=== PATIENT | female | born 1970 | race Caucasian/White ===

== ENCOUNTER → 2016-08-26 | Outpatient (CLI) | payer OTHER ==
[~2016-08-26] MED LIST: CELEXA20 MG PO; CLARITIN10 M3 PO; HYDROXYZINE PAM25 MG PO; IBUPROFEN800 MG PO; METFORMIN PO; ONDANSETRON HCL4 M1 PO; TRIAMTERENE-HC1 EAC1 PO; VOLTAREN75 MG PO
--- NOTE | ~2016-08-26 | EKG ---
PATIENT: LUDWIN BAÑUELOS UNIT #: [id number] Ventricular Rate: 82 BPM Atrial Rate: 82 BPM P-R Interval: 118 ms QRS Duration: 86 ms Q-T Interval: 382 ms QTC Calculation(Bezet): 446 ms P [place]: 43 degrees Calculated T [place]: 1 degrees Diagnosis Line: Normal sinus rhythm Diagnosis Line: Normal ECG Diagnosis Line: No previous ECGs available Diagnosis Line: Confirmed by VIVIANA GARCIA MD ([id number]) on 08/27/2016 Diagnosis Line: 7:59:58 PM INTERPRETING MD: JOSE RILEY
[2016-08-26 15:37] LABS: CALCIUM SERUM 9.1 mg/dL (8.4-10.2); CREATININE SERUM 0.6 mg/dL (0.6-1.4); GLOM FILT RATE Estimated 110.9 mL/min (>60); POTASSIUM 3.6 mmol/L (3.5-5.1)
== END | disposition home or self-care (01) ==
LOC: CAMB 14:23
PROVIDERS: Surgery
DX: Z01.818 Encounter for other preprocedural examination (principal); K43.9 Ventral hernia without obstruction or gangrene
CPT/HCPCS: 36415; 80048; 93005

== ENCOUNTER → 2016-08-31 | Day surgery (SDC) | payer OTHER ==
--- NOTE | ~2016-08-31 | OR ---
Unit #: [id number] #: [id number] Patient: LUDWIN BAÑUELOS [id number] [address] [place], [place] [address] [id number] O MR#: [id number] NAME: LUDWIN BAÑUELOS ROOM: Date of Procedure: 08/31/2016 Admission Date: 08/31/2016 Surgeon: Chris Pino M.D. : 1970 Attending Physician: Chris Pino M.D. OPERATIVE REPORT PREOPERATIVE DIAGNOSIS Incarcerated incisional hernia. POSTOPERATIVE DIAGNOSIS Multiple adhesions, anterior abdominal wall. PROCEDURES PERFORMED 1. Diagnostic laparoscopy. 2. Laparoscopic adhesiolysis. DINING ROOM SUPERVISOR Karthikeyan Rosales M.D. ANESTHESIA General endotracheal anesthesia. ESTIMATED BLOOD LOSS Minimal. IV FLUIDS 500 crystalloid. COMPLICATIONS None. INDICATIONS FOR PROCEDURE The patient is a 46-year-old lady, who presents with a multiple sections. She presents with increasing bulge in the more right lower quadrant anterior mons pubis area. This is felt to be consistent with probable enlarging ventral hernia. DESCRIPTION OF PROCEDURE The patient was taken to the operating theater and placed in a supine position. General anesthesia was induced. The abdomen was prepped and draped. A 5-mm Optiview trocar was placed in the left upper quadrant without difficulty. Abdomen was insufflated to 15 mmHg with CO2. Under direct vision, I placed a left lower quadrant 10 mm port. General inspection of the abdomen revealed multiple adhesions to the anterior abdominal wall. These were taken down with combination of sharp and blunt dissection. Upon removing these adhesions, I was able to visualize the anterior abdominal wall all the way down to the pelvic brim. I saw no evidence of fascial defect. I did not see any evidence of a direct or Unit #: [id number] #: [id number] Patient: LUDWIN BAÑUELOS indirect hernia at either side. I visualized the uterus, which appeared to be boggy, but noninflamed. I identified the clips from her tubal ligation. I saw no other abnormalities. I was able to palpate the area of suspicion external. This appeared to be either an area of abnormal concentration of fat necrosis versus variation of norm. I thus removed the ports and closed with 4-0 Vicryl. The patient tolerated the procedure well and sent to the recovery room in good condition. Dictated by... Franko Huber/ladan TD: 09/01/2016 02:35 JOB #: [id number] OPERATIVE REPORT Page 1 of 1 X Chris Pino MD X PROCEDURE OPERATIVE NOTE
== END | disposition home or self-care (01) ==
LOC: CSUR 08:32
DX: K66.0 Peritoneal adhesions (postprocedural) (postinfection) (principal); E11.9 Type 2 diabetes mellitus without complications; I10 Essential (primary) hypertension; Z88.2 Allergy status to sulfonamides
CPT/HCPCS: 82947; 84703; J0330; J1644; J2250; J2405; J3010

== ENCOUNTER → 2016-10-01 | Outpatient (CLI) | payer OTHER | END | disposition home or self-care (01) | LOC: CBAR 09:56 | DX: Z01.812 Encounter for preprocedural laboratory examination (principal); E66.01 Morbid (severe) obesity due to excess calories | CPT/HCPCS: 36415; 84443; 86677; G0463 ==

== ENCOUNTER → 2016-11-27 | Outpatient (CLI) | payer OTHER ==
--- NOTE | ~2016-11-27 | CR97 ---
[facility] A Service of [facility] & [facility] RADIOLOGY TEXT RESULTS PATIENT: LUDWIN BAÑUELOS LOCATION: [facility] : 74 UNIT #: [id number] AGE: [address]: Chris Pino MD SEX: F ORDER DR: [id number] [facility] [address] [facility] [place], [place] [address] [id number] O MR#: [id number] Acc #: [id number] NAME: LUDWIN BAÑUELOS. : 1970 SEX: F STUDY DATE/TIME: 11/27/2016 7:41 UNIT: [facility] ROOM: STUDY DESCRIPTION: CR Esophagram Attending Physician: Chris Pino M.D. Ordering Physician: Chris Pino M.D. Primary Care Physician: Aleaxndra Osei M.D. MEDICAL IMAGING REPORT This report is preliminary unless electronic signature is present EXAM Esophagram, 11/27/2016 HISTORY Preoperative evaluation for bariatric surgery. PROCEDURE Study performed with 0.3 minutes of fluoroscopy and 6 spot images. FINDINGS Esophagus is normal in course and caliber. There is no hiatal hernia, mass or stricture. IMPRESSION Normal esophagram. Dictated by... Kain Gallego M.D. THIS IS AN ELECTRONICALLY VERIFIED REPORT Kain Gallego M.D. at 11/27/2016 4:09 PM STEVE/talon TD: 11/27/2016 13:08 JOB #: [id number] MEDICAL IMAGING REPORT Page 1 of 1 COPY
--- NOTE | ~2016-11-27 | CR63 ---
[facility] A Service of [facility] & [facility] RADIOLOGY TEXT RESULTS PATIENT: LUDWIN BAÑUELOS LOCATION: [facility] : 74 UNIT #: [id number] AGE: [address]: Chris Pino MD SEX: F ORDER DR: [id number] [facility] [address] [facility] [place], [place] [address] [id number] O MR#: [id number] Acc #: [id number] NAME: LUDWIN BAÑUELOS. : 1970 SEX: F STUDY DATE/TIME: 11/27/2016 7:17 UNIT: [facility] ROOM: STUDY DESCRIPTION: CR Chest 2 View Attending Physician: Chris Pino M.D. Ordering Physician: Chris Pino M.D. Primary Care Physician: Alexandra Osei M.D. MEDICAL IMAGING REPORT This report is preliminary unless electronic signature is present EXAM Chest PA and lateral, 11/27/2016 HISTORY Shortness of breath on exertion today, preop laparoscopic gastric banding. Benign essential hypertension. FINDINGS PA and lateral examination of the chest upright shows a good expansion of the parenchyma with a normal distribution of the pulmonary vascularity. There is no indication of congestion, effusion, infiltrate, tumor, or nodular density. The pleural reflections and diaphragmatic contours are normal. The cardiac silhouette and mediastinal anatomy is within normal limits. IMPRESSION Normal chest. Dictated by... Martir Finnegan M.D. THIS IS AN ELECTRONICALLY VERIFIED REPORT Martir Finnegan M.D. at 11/27/2016 5:05 PM CHICA/talon TD: 11/27/2016 10:11 JOB #: [id number] MEDICAL IMAGING REPORT Page 1 of 1 COPY
[2016-11-27 08:58] LABS: HEMATOCRIT 44.5 % (35.0-45.0); HEMOGLOBIN 14.3 gm/dL (12.0-16.0); MEAN CELL VOLUME 91.2 FL (83-96); MEAN CORPUSCULAR HEMOGLOBIN 29.3 PG (28-34); MEAN CORPUSCULAR HGB CONC 32.1 g/dL (30-36); MEAN PLATELET VOLUME 8.8 FL (6.5-11.5); RED BLOOD COUNT 4.88 X10e (3.90-5.30); WHITE BLOOD COUNT 11.9 X10e3 (4.0-10.5)
[2016-11-27 09:59] LABS: ALBUMIN SERUM 3.7 g/dL (3.5-5.0); BILIRUBIN,TOTAL 0.5 mg/dL (0.2-2.0); CALCIUM SERUM 9.3 mg/dL (8.4-10.2); CREATININE SERUM 0.5 mg/dL (0.6-1.4); GLOM FILT RATE Estimated 117.7 mL/min (>60); POTASSIUM 4.6 mmol/L (3.5-5.1)
== END | disposition home or self-care (01) ==
LOC: CRAD 06:56 → CAMB 08:30
PROVIDERS: Surgery
DX: Z01.818 Encounter for other preprocedural examination (principal)
CPT/HCPCS: 36415; 71020; 74220; 80053; 80061; 84443; 85027

== ENCOUNTER → 2016-12-09 | Day surgery (SDC) | payer OTHER ==
--- NOTE | ~2016-12-09 | CR7 ---
[facility] A Service of [facility] & [facility] RADIOLOGY TEXT RESULTS PATIENT: LUDWIN BAÑUELOS LOCATION: [facility] : 74 UNIT #: [id number] AGE: [address]: Chris Pino MD SEX: F ORDER DR: [id number] [facility] [address] [facility]. [place], [place] [address] [id number] O MR#: [id number] Acc #: [id number] NAME: LUDWIN BAÑUELOS : 1970 SEX: F STUDY DATE/TIME: 12/09/2016 08:51 UNIT: [facility] ROOM: STUDY DESCRIPTION: CR Abdomen Single AP View Attending Physician: Chris Pino M.D. Ordering Physician: Chris Pino M.D. Primary Care Physician: Alexandra Osei M.D. MEDICAL IMAGING REPORT This report is preliminary unless electronic signature is present EXAM Portable abdomen, 12/09/2016 08:51 hours HISTORY Morbid obesity. Postop Lap-Band placement today. COMPARISON Preop esophagram, 11/27/2016 FINDINGS Single limited view of the abdomen is performed. The right flank and pelvis are excluded from the field of view. The bowel gas pattern is unremarkable. There is a new Lap-Band overlying the left T10/T11 costovertebral junctions oriented at 57 degrees from vertical. Radiopaque tubing courses inferiorly to a port projecting over the left transverse process of L5. IMPRESSION Postop lap-band placement with band overlying the left T10 and T11 costovertebral junctions oriented at 57 degrees from vertical. Radiopaque tubing courses to a port projecting over the left aspect of L5. Bowel gas pattern is unremarkable. There is linear atelectasis at the left base. Dictated by... Cristiana Carroll M.D. THIS IS AN ELECTRONICALLY VERIFIED REPORT Cristiana Carroll M.D. at 12/09/2016 2:32 PM Daniela TD: 12/09/2016 11:52 JOB #: [id number] [facility] A Service of [facility] & [facility] RADIOLOGY TEXT RESULTS PATIENT: LUDWIN BAÑUELOS [facility] #: [id number] : 74 UNIT #: [id number] AGE: [address]: Chris Pino MD SEX: F ORDER DR: MEDICAL IMAGING REPORT Page 1 of 1 COPY
--- NOTE | ~2016-12-09 | OR ---
Unit #: [id number] #: [id number] Patient: LUDWIN BAÑUELOS [id number] [address] [address] [id number] O MR#: [id number] NAME: LUDWIN BAÑUELOS ROOM: Date of Procedure: 12/09/2016 Admission Date: 12/09/2016 Surgeon: Chris Pino M.D. : 1970 Attending Physician: Chris Pino M.D. Primary Care Physician: Alexandra Osei M.D. OPERATIVE REPORT PREOPERATIVE DIAGNOSIS Chronic morbid obesity, body mass index of 42. POSTOPERATIVE DIAGNOSES 1. Chronic morbid obesity, body mass index of 42. 2. Paraesophageal hiatal hernia. PROCEDURE PERFORMED 1. Laparoscopic adjustable gastric band. 2. Laparoscopic paraesophageal hiatal hernia repair. BORING MACHINE OPERATOR Yousif Alvares M.D. ANESTHESIA General anesthesia. ESTIMATED BLOOD LOSS Minimal. IV FLUIDS 800 crystalloid. COMPLICATIONS None. INDICATIONS FOR PROCEDURE The patient is a 44-year-old with chronic morbid obesity. DESCRIPTION OF PROCEDURE The patient was taken to the operating room and placed in supine position. General anesthesia was induced. The abdomen was prepped and draped. A 3-cm incision was then made left of the midline. A 10-mm Visiport was then placed intraabdominal under direct vision. The abdomen was insufflated to 15 mmHg with CO2. The patient was then placed in a steep reversed Trendelenburg. General inspection of the abdomen revealed what appeared to be a paraesophageal hernia. This was identified with a defect at the diaphragm using anterior palpation with the instrument. We then made a small incision in the subxiphoid region. A Dinorah liver retractor was then placed intraabdominal and used to retract the left lobe of the liver upward to further expose the paraesophageal hernia and GE junction. I then placed a 5-mm port in the right upper quadrant, a 10-mm Unit #: [id number] #: [id number] Patient: LUDWIN BAÑUELOS port in the left upper quadrant, and another 5-mm port in the left lower quadrant. The stomach was retracted medial and downward. Upon retracting the stomach, we took down the paraesophageal ligament, exposing the right and left paula at the paraesophageal hernia. Any hernia sac was reduced. We then repaired the paraesophageal hernia using interrupted #0 Ethibond sutures in a [id number] type fashion. This formed a snug repair to the anterior esophagus. We then retracted the stomach medially and further exposed the angle of His using Bovie electrocautery. The stomach was then retracted laterally. We then took down the hepatogastric ligament with Bovie electrocautery. This exposed the right paula. Using blunt dissection, I created a retrogastric tunnel from this point to the angle of His. The band was then placed intraabdominal through the 10-mm port site. This was then brought through the retrogastric tunnel in a pars flaccida technique. The band was then closed anteriorly to form a 20-mL to 25-mL anterior gastric pouch. The fundus was then secured to the anterior pouch to prevent movement around the stomach using two interrupted #0 Ethibond sutures. A third suture was then used as a gathering stitch from the lesser curve to the anterior stomach, gathering and imbricating the remaining fundus of the stomach. The tubing was then brought out through the midline 10-mm port site. All ports and the Dinorah liver retractor were removed under direct vision with no evidence of abdominal hemorrhage. A polypropylene mesh was then secured to the posterior face of the laparoscopic band port. This was secured using #0 Ethibond suture. This was then cut to shape. The port was then connected to the tubing and placed into a subcutaneous pocket just anterior to the rectus sheath. Its position was then confirmed. All tubing was then placed intraabdominal. The wounds were then closed with interrupted 4-0 Vicryl. The patient tolerated the procedure well and was sent to the recovery room in good condition. Dictated by... Franko Huber/ladan TD: 12/09/2016 17:14 JOB #: [id number] OPERATIVE REPORT Page 1 of 1 X Chris Pino MD PROCEDURE OPERATIVE NOTE
== END | disposition home or self-care (01) ==
LOC: CSUR 06:04
DX: E66.01 Morbid (severe) obesity due to excess calories (principal); K44.9 Diaphragmatic hernia without obstruction or gangrene; E11.9 Type 2 diabetes mellitus without complications; F41.9 Anxiety disorder, unspecified; Z68.41 Body mass index [BMI] 40.0-44.9, adult; Z87.442 Personal history of urinary calculi; Z88.2 Allergy status to sulfonamides; Z88.1 Allergy status to other antibiotic agents; Z79.1 Long term (current) use of non-steroidal anti-inflammatories (NSAID); Z79.84 Long term (current) use of oral hypoglycemic drugs; Z79.899 Other long term (current) drug therapy; Z90.49 Acquired absence of other specified parts of digestive tract; Z98.51 Tubal ligation status; Z98.890 Other specified postprocedural states
CPT/HCPCS: 74000; 82947; 84703; C1781; J0330; J0690; J1650; J1885; J2250; J2405; J2710; J3010; L8699